=== PATIENT | female | born 1975 | race Caucasian/White ===

== ENCOUNTER 2024-09-03 21:08 | Inpatient (IN) | payer BC, OTHER ==
[2024-09-03] MEDS ORDERED: Boostrix 0.5 ML (Tdap) VIAL (>/=7 yrs of age) ONE (21:14)
[2024-09-03] MEDS ORDERED: Morphine 2 MG/ML VIAL ONE ×2 (21:26→22:16)
[2024-09-03] MEDS ORDERED: Ondansetron PF 4 MG/2 ML Vial ONE (21:26)
[2024-09-03] MEDS ORDERED: Bupivacaine 0.25% 10 ML VIAL ONE (22:00)
[2024-09-03] MEDS ORDERED: fentaNYL 50 mcg/mL 1 mL Vial ONE (22:56)
[2024-09-04 01:56] VITALS: BMI 26.2
[2024-09-04] MEDS: Morphine 2 MG/ML VIAL SLOW IVP SCH ×2 (02:15→06:01)
[2024-09-04] MEDS: Ondansetron PF 4 MG/2 ML Vial IVP SCH ×2 (02:16→06:01)
[2024-09-04] MEDS: Sodium Chloride 0.9% 1,000 ML IV SCH (02:16)
[2024-09-04] MEDS: Morphine 4 MG/ML VIAL SLOW IVP SCH (07:42)
[2024-09-04] MEDS: Ketorolac Tromethamine 30 MG (1 mL) VIAL IVP SCH ×2 (07:43→15:47)
[2024-09-04] MEDS ORDERED: Morphine 2 MG/ML VIAL SLOW IVP PRN (07:48)
[2024-09-04] MEDS ORDERED: Milk Of Magnesia 30 ML UDCUP PO PRN (07:48)
[2024-09-04] MEDS ORDERED: Acetaminophen 325 MG TAB PO PRN (07:48)
[2024-09-04] MEDS ORDERED: Bisacodyl 10 MG SUPP PR PRN (07:48)
[2024-09-04] MEDS ORDERED: fentaNYL 50 mcg/mL 1 mL Vial SLOW IVP PRN (07:48)
[2024-09-04] MEDS ORDERED: traMADol HCl 50 MG TAB PO PRN ×2 (07:48)
[2024-09-04] MEDS ORDERED: CEFAZOLIN 2 GM in Sodium Chloride 0.9% 100 ML IVPB SCH (08:00)
[2024-09-04] MEDS ORDERED: Communication Order-Pharmacy FS PRN (08:00)
[2024-09-04 09:55] LABS: #Basophils 0.03 10x3/uL (0.0-0.2); #Eosinophils Less than 0.03 10x3/uL (0.0-0.7); %Basophils 0.5 % (0.0-1.0); %Lymphocytes 15.1 % (21.0-51.0); %Monocytes 9.5 % (0.0-10.0); %Neutrophils 74.7 % (42.0-75.0); Hematocrit 36.2 % (36.0-47.0); Hemoglobin 12.3 g/dL (12.0-16.0); Mean Corpuscular Hemoglobin 30.9 pg (27.0-31.0); Mean Platelet Volume 10.7 fL (7.4-10.4); Platelet Count 201 10x3/uL (130-400); RBC Distribution Width 12.9 % (11.5-14.5); Red Blood Cell (RBC) Count 3.98 mill/uL (4.20-5.40)
[2024-09-04 10:10] LABS: ALT (SGPT) 84 U/L (8-55); AST (SGOT) 125 U/L (5-34); Albumin 3.4 g/dL (3.5-5.0); Alkaline Phosphatase 113 U/L (40-110); Anion Gap 11 mmol/L (10-20); BUN (Urea Nitrogen) 11 mg/dL (7.0-18.7); Bilirubin, Total 1.6 mg/dL (0.2-1.2); Calc. Creatinine Clearance 108 mL/min (70-130); Calcium 8.8 mg/dL (7.8-10.44); Carbon Dioxide 25 mmol/L (22-29); Chloride 108 mmol/L (98-107); Estimated GFR 108; Globulin 3.2 g/dL (2.4-3.5); Glucose 89 mg/dL (70-105); Potassium 3.8 mmol/L (3.5-5.1); Protein, Total 6.6 g/dL (6.0-8.3); Sodium 140 mmol/L (136-145)
[2024-09-04] MEDS ORDERED: Famotidine/PF 20 mg/2ml Vial ONE (10:47)
[2024-09-04] MEDS ORDERED: PROPOFOL 20 ML ONE (10:57)
[2024-09-04] MEDS ORDERED: fentaNYL 50 mcg/mL 1 mL Vial ONE (10:58)
[2024-09-04] MEDS ORDERED: Bupivacaine 0.25% HCL 30 ML VIAL ONE (10:59)
[2024-09-04] MEDS ORDERED: EPINEPHrine 1 MG/ML VIAL ONE (10:59)
[2024-09-04] MEDS ORDERED: Lidocaine 2% PF 5 ML VIAL ONE (10:59)
[2024-09-04] MEDS ORDERED: CEFAZOLIN 2 GM VIAL ONE (11:13)
[2024-09-04] MEDS ORDERED: Dexamethasone 20 MG/5 ML VIAL ONE (11:52)
[2024-09-04] MEDS ORDERED: Ondansetron PF 4 MG/2 ML Vial ONE ×2 (11:52→13:33)
[2024-09-04] MEDS ORDERED: PHENYLEPHRINE-NS 100 MCG/ML 10 ML SYRINGE ONE (12:13)
[2024-09-04] MEDS ORDERED: Glycopyrrolate 0.2 MG/ML 5 ML SYRINGE ONE (12:13)
[2024-09-04] MEDS ORDERED: Ketorolac Tromethamine 30 MG (1 mL) VIAL ONE (13:30)
[2024-09-04] MEDS ORDERED: Promethazine HCl 25 MG/ML VIAL IM PRN (13:33)
[2024-09-04] MEDS ORDERED: Ondansetron HCl/PF 4 MG/2 ML Vial IVP PRN (13:33)
[2024-09-04] MEDS ORDERED: Meperidine HCl/PF 25 MG/ML VIAL SLOW IVP PRN (13:33)
[2024-09-04] MEDS: HYDROcodone/Acetaminophen 5/325 mg Tablet PO PRN (18:37)
[2024-09-04] MEDS: CEFAZOLIN 2 GM in Sodium Chloride 0.9% 100 ML IVPB SCH (21:58)
[2024-09-05] MEDS: Aspirin 81 mg Enteric Coated Tablet PO SCH (09:25)
[2024-09-05 11:54] VITALS: BP 109/70; TEMP 97.7
== END 2024-09-05 12:20 | disposition home or self-care (01) | DRG 512 ==
LOC: ERS 21:08 → SURG B 09-04 00:54
PROVIDERS: ADMIT Surgery; ATTEND Surgery
PROC: 0PSHXZZ Reposition Right Radius, External Approach (ICD-10-PCS; principal; 2024-09-04)
PROC: 0PSKXZZ Reposition Right Ulna, External Approach (ICD-10-PCS; 2024-09-04)
PROC: 0PSH04Z Reposition Right Radius with Internal Fixation Device, Open Approach (ICD-10-PCS; 2024-09-04)
PROC: 0PSK04Z Reposition Right Ulna with Internal Fixation Device, Open Approach (ICD-10-PCS; 2024-09-04)
DX: S52.91XA Unspecified fracture of right forearm, initial encounter for closed fracture (principal); S52.601A Unspecified fracture of lower end of right ulna, initial encounter for closed fracture; Z90.710 Acquired absence of both cervix and uterus; Z85.3 Personal history of malignant neoplasm of breast; Z90.11 Acquired absence of right breast and nipple; V43.53XA Car driver injured in collision with pick-up truck in traffic accident, initial encounter
CPT/HCPCS: 12002; 29125; 36415; 70450; 72125; 80053; 85025; 90471; 90715; 93005; 96374; 96375; 96376; C1713; G0390; J0171; J0665; J1100; J1885; J2270; J2272; J2405; J2704; J3010; J3490; J7030